=== PATIENT | male | born 1975 | race American Indian/Alaskan Native ===

== ENCOUNTER 2018-10-20 09:38 | Emergency (ER) | payer SELFPAY ==
[2018-10-20 09:50] VITALS: BP 128/83
[2018-10-20] MEDS ORDERED: ULTRAM PO ONE (10:20)
[2018-10-20] MEDS ORDERED: IBUPROFEN PO ONE (10:20)
[2018-10-20] MEDS ORDERED: CLEOCIN PO ONE (10:20)
--- NOTE | 2018-10-20 10:28 | Emergency Department Report ---
ED General Adult HPI - General Chief complaint: Dental/Oral Stated complaint: SWOLLEN L SIDE OF FACE Time Seen by Provider: 10/20/18 10:09 Source: patient Mode of arrival: Ambulatory Limitations: No Limitations - History of Present Illness Initial comments: Patient is a 43-year-old gentleman whose exit from [facility] who is in town to play soccer who is presenting with left-sided facial swelling and toothache. Patient has pain at tooth #14 and is developed swelling over the last 2 days to the left side of his face. Patient states pain is aching and throbbing in 10 in severity. It's worse when he chews. Patient denies any fevers chills difficulty swallowing or neck stiffness. - Related Data Previous Rx's Medication Instructions Recorded Last Taken Type Clindamycin [Clindamycin CAP] 300 mg PO Q8H #21 cap 10/20/18 Unknown Rx HYDROcodone/APAP 5-325 [[place] 1 each PO Q6HR PRN #14 tablet 10/20/18 Unknown Rx 5/325] Ibuprofen [Motrin 600 MG tab] 600 mg PO Q8H PRN #20 tablet 10/20/18 Unknown Rx Allergies Allergy/AdvReac Type Severity Reaction Status Date / Time No Known Allergies Allergy Unverified 10/20/18 09:41 ED Review of Systems ROS: Stated complaint: SWOLLEN L SIDE OF FACE Other details as noted in HPI Comment: All other systems reviewed and negative ED Past Medical Hx - Past Medical History Previous Medical History?: No - Surgical History Past Surgical History?: No - Social History Smoking Status: Current Every Day Smoker Substance Use Type: Alcohol - Medications Home Medications: Home Medications Medication Instructions Recorded Confirmed Last Taken Type Clindamycin [Clindamycin CAP] 300 mg PO Q8H #21 cap 10/20/18 Unknown Rx HYDROcodone/APAP 5-325 [[place] 1 each PO Q6HR PRN #14 tablet 10/20/18 Unknown Rx 5/325] Ibuprofen [Motrin 600 MG tab] 600 mg PO Q8H PRN #20 tablet 10/20/18 Unknown Rx ED Physical Exam - General Limitations: No Limitations General appearance: alert, in no apparent distress - Head Head exam: Present: atraumatic, normocephalic, other (patient with some swelling and tenderness and firmness to the left side of the face near the cheek bone extending down to the angle of the jaw.) - Eye Eye exam: Present: normal appearance, PERRL, EOMI - ENT ENT exam: Present: mucous membranes moist - Expanded ENT Exam Expanded Mouth exam: Present: tongue normal. Absent: tongue elevation Teeth exam: Present: dental caries, dental tenderness # (14) - Neck Neck exam: Present: normal inspection - Respiratory Respiratory exam: Present: normal lung sounds bilaterally. Absent: respiratory distress - Cardiovascular Cardiovascular Exam: Present: regular rate, normal rhythm. Absent: systolic murmur, diastolic murmur, rubs, gallop - GI/Abdominal GI/Abdominal exam: Present: soft, normal bowel sounds - Rectal Rectal exam: Present: deferred - Extremities Exam Extremities exam: Present: normal inspection - Back Exam Back exam: Present: normal inspection - Neurological Exam Neurological exam: Present: alert, oriented X3 - Psychiatric Psychiatric exam: Present: normal affect, normal mood - Skin Skin exam: Present: warm, dry, intact, normal color. Absent: rash ED Course Vital Signs 10/20/18 09:47 Temperature 98.4 F Pulse Rate 103 H Respiratory 18 Rate Blood Pressure 128/83 O2 Sat by Pulse 100 Oximetry ED Medical Decision Making - Medical Decision Making Patient with dental abscess with facial cellulitis. Patient started on antibiotics as well as pain management the patient follow up with his dentist when he returns back to [facility] in 2 days. Critical care attestation.: If time is entered above; I have spent that time in minutes in the direct care of this critically ill patient, excluding procedure time. ED Disposition Clinical Impression: Dental abscess, Facial cellulitis Disposition: TO HOME OR SELFCARE Is pt being admited?: No Does the pt Need Aspirin: No Condition: Stable Instructions: Dental Abscess (ED) Additional Instructions: Please follow-up with your dentist or an oral surgeon as soon as possible. Time of Disposition: 10:27
== END 2018-10-20 10:52 | disposition home or self-care (01) ==
LOC: ED 09:38
DX: K04.7 Periapical abscess without sinus (principal); F17.200 Nicotine dependence, unspecified, uncomplicated
CPT/HCPCS: 99282